=== PATIENT | male | born 1970 | race Caucasian/White ===

== ENCOUNTER 2020-04-18 10:48 | Emergency (ER) | payer MEDICAID, OTHER ==
[2020-04-18] MEDS ORDERED: Sodium Chloride 0.9% 10 ML Syringe FLUSH PRN (11:06)
[2020-04-18] MEDS ORDERED: Sodium Chloride 0.9% 2.5 ML Syringe FLUSH PRN (11:06)
--- NOTE | 2020-04-18 11:11 | EDM.PDOC ---
ED HPI GENERAL MEDICAL PROBLEM - General Chief Complaint: Respiratory Problem Stated Complaint: DIFFICULTY BREATHING Time Seen by Provider: 04/18/20 10:55 Source of Information: Reports: Patient - History of Present Illness INITIAL COMMENTS - FREE TEXT/NARRATIVE: History of present illness: 49-year-old male presenting with difficulty breathing and cough, over the last 24 hours. Patient reports similar symptoms 2 weeks ago, for which he was seen in the clinic here and they did a amaral swab told him to self isolate, however it did come back negative. He did feel better but then started to feel the same way again. Has not had any fevers. He does not smoke but did he did have secondhand smoke exposure as a child and had a remote history of substance use including smoking marijuana and cocaine use. No known history of asthma or emphysema. He does live about 4 hours away from here and makes the drive frequently during the week. Review of systems: As per history of present illness and below otherwise all systems reviewed and negative. Past medical history: As per history of present illness and as reviewed below otherwise noncontributory. Surgical history: As per history of present illness and as reviewed below otherwise noncontributory. Social history: No reported history of drug or alcohol abuse. No tobacco. Remote drug abuse. Family history: As per history of present illness and as reviewed below otherwise noncontributory. Physical exam: GEN: no acute distress, well appearing HEENT: Atraumatic, normocephalic, mucous membranes moist, Neck: supple, nontender, trachea midline. Lungs: No respiratory distress. Mild expiratory wheezing. Heart: Mildly tachycardic Extremities: Atraumatic. Neurovascularly intact. No swelling. Neuro: Awake, alert, oriented. Neuro Exam nonfocal. Skin: warm, dry, no lesions Diagnostics: [] Therapeutics: [] MDM: Impression: [] Plan: [] Definitive disposition and diagnosis as appropriate pending reevaluation and review of above. - Related Data Allergies Allergy/AdvReac Type Severity Reaction Status Date / Time No Known Allergies Allergy Verified 04/18/20 10:57 Home Meds: Home Meds Albuterol Sulfate [Proair Respiclick] 90 mcg IH Q6HR PRN #1 canister 04/18/20 [Rx] Azithromycin [Zithromax] 250 mg PO DAILY #6 tab 04/18/20 [Rx] Past Medical History - Past Health History Medical/Surgical History: Denies Medical/Surgical History Cardiovascular History: Reports: None Respiratory History: Reports: None Gastrointestinal History: Reports: None Genitourinary History: Reports: None Neurological History: Reports: None Psychiatric History: Reports: None Endocrine/Metabolic History: Reports: None Hematologic History: Reports: None Immunologic History: Reports: None Oncologic (Cancer) History: Reports: None Dermatologic History: Reports: None - Infectious Disease History Infectious Disease History: Reports: None - Past Surgical History Other HEENT Surgeries/Procedures: hx sinus surgery Male Surgical History: Reports: None Other Musculoskeletal Surgeries/Procedures:: hx of repair to left proximal tibia, couple of years ago Social & Family History - Tobacco Use Smoking Status *Q: Former Smoker Used Tobacco, but Quit: No - Recreational Drug Use Recreational Drug Use: No ED ROS GENERAL - Review of Systems Review Of Systems: See Below (See HPI) ED EXAM, GENERAL - Physical Exam Exam: See Below (See HPI) EKG INTERPRETATION EKG Interpretation Comments: EKG performed today at 11:24 AM, sinus rhythm, rate 93, right axis deviation, normal early repolarization ST changes. No acute ischemia, no STEMI. Interpreted by me. Course - Vital Signs Text/Narrative:: Patient with dyspnea and cough, mildly tachycardic. No known past medical history. Patient does drive frequently for 4 hours at a time. Therefore we will also check d-dimer though the patient is otherwise low risk for PE/DVT. Labs otherwise unremarkable, however d-dimer elevated. Will check CT angio chest. Chest x-ray negative. CT scan shows groundglass opacity in right middle and infrahilar area consistent with pneumonia, concern for potential COVID given the patient's shortness of breath. Will check swab. Will cover with azithromycin and discharge with albuterol inhaler. COVID negative. Feeling well, no acute distress on multiple reevaluation. Patient stable for outpatient treatment. Last Recorded V/S: Last Vital Signs Temp 96.8 F L 04/18/20 10:53 Pulse 88 04/18/20 15:29 Resp 16 04/18/20 15:29 BP 102/55 L 04/18/20 15:29 Pulse Ox 95 04/18/20 15:29 - Orders/Labs/Meds Orders: Active Orders 24 hr Category Date Time Status EKG Documentation Completion [RC] STAT Care 04/18/20 11:06 Active Saline Lock Insert [OM.PC] Stat Oth 04/18/20 11:06 Ordered Labs: Laboratory Tests 04/18/20 04/18/20 04/18/20 Range/Units 11:18 11:18 11:18 WBC 10.81 (4.0-11.0) K/uL RBC 5.03 (4.50-5.90) M/uL Hgb 15.2 (13.0-17.0) g/dL Hct 45.6 (38.0-50.0) % MCV 90.7 (80.0-98.0) fL MCH 30.2 (27.0-32.0) pg MCHC 33.3 (31.0-37.0) g/dL RDW Std Deviation 43.8 (28.0-62.0) fl RDW Coeff of Natalia 13 (11.0-15.0) % Plt Count 287 (150-400) K/uL MPV 9.30 (7.40-12.00) fL Neut % (Auto) 56.3 (48.0-80.0) % Lymph % (Auto) 21.1 (16.0-40.0) % Hardin % (Auto) 10.3 (0.0-15.0) % Eos % (Auto) 11.7 H (0.0-7.0) % Baso % (Auto) 0.6 (0.0-1.5) % Neut # (Auto) 6.1 H (1.4-5.7) K/uL Lymph # (Auto) 2.3 (0.6-2.4) K/uL Hardin # (Auto) 1.1 H (0.0-0.8) K/uL Eos # (Auto) 1.3 H (0.0-0.7) K/uL Baso # (Auto) 0.1 (0.0-0.1) K/uL Nucleated RBC % 0.0 /100WBC Nucleated RBCs # 0 K/uL D-Dimer, Quantitative 0.62 H (0.0-0.50) mg/L FEU Sodium 138 (136-148) mmol/L Potassium 4.4 (3.5-5.1) mmol/L Chloride 102 (98-107) mmol/L Carbon Dioxide 28.6 (21.0-32.0) mmol/L BUN 15 (7.0-18.0) mg/dL Creatinine 0.9 (0.8-1.3) mg/dL Est Cr Clr Drug Dosing 86.80 mL/min Estimated GFR (MDRD) > 60.0 ml/min Glucose 109 H (74-106) mg/dL Calcium 9.0 (8.5-10.1) mg/dL Total Bilirubin 0.3 (0.2-1.0) mg/dL AST 21 (15-37) IU/L ALT 33 (14-63) IU/L Alkaline Phosphatase 99 (46-116) U/L Troponin I < 0.050 (0.000-0.056) ng/mL B-Natriuretic Peptide (<100) PG/ML Total Protein 7.3 (6.4-8.2) g/dL Albumin 3.8 (3.4-5.0) g/dL Globulin 3.5 (2.6-4.0) g/dL Albumin/Globulin Ratio 1.1 (0.9-1.6) TSH 3rd Generation 4.20 H (0.36-3.74) uIU/mL COVID-19 (LAITH) (NEGATIVE) 04/18/20 04/18/20 Range/Units 11:18 14:40 WBC (4.0-11.0) K/uL RBC (4.50-5.90) M/uL Hgb (13.0-17.0) g/dL Hct (38.0-50.0) % MCV (80.0-98.0) fL MCH (27.0-32.0) pg MCHC (31.0-37.0) g/dL RDW Std Deviation (28.0-62.0) fl RDW Coeff of Natalia (11.0-15.0) % Plt Count (150-400) K/uL MPV (7.40-12.00) fL Neut % (Auto) (48.0-80.0) % Lymph % (Auto) (16.0-40.0) % Hardin % (Auto) (0.0-15.0) % Eos % (Auto) (0.0-7.0) % Baso % (Auto) (0.0-1.5) % Neut # (Auto) (1.4-5.7) K/uL Lymph # (Auto) (0.6-2.4) K/uL Hardin # (Auto) (0.0-0.8) K/uL Eos # (Auto) (0.0-0.7) K/uL Baso # (Auto) (0.0-0.1) K/uL Nucleated RBC % /100WBC Nucleated RBCs # K/uL D-Dimer, Quantitative (0.0-0.50) mg/L FEU Sodium (136-148) mmol/L Potassium (3.5-5.1) mmol/L Chloride (98-107) mmol/L Carbon Dioxide (21.0-32.0) mmol/L BUN (7.0-18.0) mg/dL Creatinine (0.8-1.3) mg/dL Est Cr Clr Drug Dosing mL/min Estimated GFR (MDRD) ml/min Glucose (74-106) mg/dL Calcium (8.5-10.1) mg/dL Total Bilirubin (0.2-1.0) mg/dL AST (15-37) IU/L ALT (14-63) IU/L Alkaline Phosphatase (46-116) U/L Troponin I (0.000-0.056) ng/mL B-Natriuretic Peptide 7 (<100) PG/ML Total Protein (6.4-8.2) g/dL Albumin (3.4-5.0) g/dL Globulin (2.6-4.0) g/dL Albumin/Globulin Ratio (0.9-1.6) TSH 3rd Generation (0.36-3.74) uIU/mL COVID-19 (LAITH) NEGATIVE (NEGATIVE) Meds: Medications Discontinued Medications Generic Name Dose Route Start Last Admin Trade Name Freq PRN Reason Stop Dose Admin Azithromycin 500 mg 04/18/20 14:29 04/18/20 14:38 Zithromax PO 04/18/20 14:30 500 mg ONETIME ONE Administration Iopamidol 50 ml 04/18/20 16:12 04/18/20 16:13 Isovue Multipack-370 (76%) IVPUSH 04/18/20 16:13 50 ml ONETIME STA Administration Prednisone 60 mg 04/18/20 13:00 04/18/20 13:31 Prednisone PO 04/18/20 13:01 60 mg ONETIME ONE Administration Sodium Chloride 10 ml 04/18/20 11:06 04/18/20 13:32 Saline Flush FLUSH 10 ml ASDIRECTED PRN Administration Keep Vein Open Sodium Chloride 2.5 ml 04/18/20 11:06 04/18/20 13:32 Saline Flush FLUSH 2.5 ml ASDIRECTED PRN Administration Keep Vein Open - Re-Assessments/Exams Free Text/Narrative Re-Assessment/Exam: 04/18/20 12:02 Patient's d-dimer level is elevated. Therefore CT Marylu of the chest was ordered. Chest x-ray is negative. This was discussed with the patient. 04/18/20 14:35 Resting comfortably and in no acute distress. Discussed CT scan findings of several areas of groundglass opacities concerning for pneumonia, however possibly also a coronavirus and that we will need to check a coronavirus swab. The patient is in agreement with this. 04/18/20 15:12 COVID swab negative. Plan discussed with patient. Feeling well and would like to go home. Need to avoid work for 1 week minimum and longer if still symptomatic, as well as abx and albuterol prescription discussed with patient. He agrees. Departure - Departure Time of Disposition: 15:21 Disposition: Home, Self-Care 01 Clinical Impression: Pneumonia - Discharge Information Prescriptions: Albuterol Sulfate [Proair Respiclick] 90 mcg IH Q6HR PRN #1 canister PRN Reason: Dyspnea Azithromycin [Zithromax] 250 mg PO DAILY #6 tab Instructions: Shortness of Breath, Adult, [id number], Acute Bronchitis, Adult, [id number], Upper Respiratory Infection, Adult, [id number], Community-Acquired Pneumonia, Adult, [id number] Referrals: PCP,None [Primary Care Provider] - Forms: ED Department Discharge Additional Instructions: Please take the antibiotics as prescribed until all pills are gone. You may also use the albuterol inhaler in case of difficulty breathing. Return to the emergency department if you have any severe difficulty breathing or any worsening or concerning symptoms. You must self isolate for at least 1 week or until symptoms are completely resolved. Work note is attached. Please follow-up with 1 of the primary care physicians listed below for further outpatient ongoing treatment. The following information is given to patients seen in the emergency department who are being discharged to home. This information is to outline your options for follow-up care. We provide all patients seen in our emergency department with a follow-up referral. The need for follow-up, as well as the timing and circumstances, are variable depending upon the specifics of your emergency department visit. If you don't have a primary care physician on staff, we will provide you with a referral. We always advise you to contact your personal physician following an emergency department visit to inform them of the circumstance of the visit and for follow-up with them and/or the need for any referrals to a consulting specialist. The emergency department will also refer you to a specialist when appropriate. This referral assures that you have the opportunity for follow-up care with a specialist. All of these measure are taken in an effort to provide you with optimal care, which includes your follow-up. Under all circumstances we always encourage you to contact your private physician who remains a resource for coordinating your care. When calling for follow-up care, please make the office aware that this follow-up is from your recent emergency room visit. If for any reason you are refused follow-up, please contact the [facility] Emergency Department at and asked to speak to the emergency department charge nurse. [facility] - Primary Care [address] [place], [place] [id number] [place] [address] Sepsis Event Note (ED) - Evaluation Sepsis Screening Result: No Definite Risk - Focused Exam Vital Signs: Vital Signs Temp Pulse Resp BP Pulse Ox 04/18/20 15:29 88 16 102/55 L 95 04/18/20 13:26 89 16 98/56 L 95 04/18/20 10:53 96.8 F L 102 H 22 H 98/66 94 L - My Orders Last 24 Hours: My Active Orders 04/18/20 11:06 EKG Documentation Completion [RC] STAT Saline Lock Insert [OM.PC] Stat - Assessment/Plan Last 24 Hours: My Active Orders 04/18/20 11:06 EKG Documentation Completion [RC] STAT Saline Lock Insert [OM.PC] Stat
--- NOTE | 2020-04-18 11:57 | CR ---
Chest: 2 views of the chest were obtained. Comparison: No prior chest imaging is available. Heart size and mediastinum are normal. Lungs are clear with no acute parenchymal change. Bony structures are unremarkable for the patient's age. Impression: 1. Nothing acute is seen on 2 view chest x-ray. Diagnostic code #1 This report was dictated in MDT
[2020-04-18 12:01] LABS: BLOOD UREA NITROGEN,BUN 15 mg/dL (7.0-18.0); CARBON DIOXIDE,CO2 28.6 mmol/L (21.0-32.0); CHLORIDE,CL 102 mmol/L (98-107); GLUCOSE RANDOM 109 mg/dL (74-106); POTASSIUM,K 4.4 mmol/L (3.5-5.1); SODIUM,NA 138 mmol/L (136-148)
[2020-04-18] MEDS ORDERED: predniSONE 20 MG Tab PO ONE (13:00)
--- NOTE | 2020-04-18 14:26 | CT ---
INDICATION: Chest pain and clinical signs and symptoms of pulmonary embolus. Elevated D-dimer COMPARISON: None TECHNIQUE: : CT examination of the chest was performed with the uneventful intravenous administration of 50 cc of Isovue 370 while thin axial sections were obtained from above the apices of the lungs to the lung bases. Please note that all CT scans at this facility use dose modulation, iterative reconstruction, and/or weight-based dosing when appropriate to reduce radiation dose to as low as reasonably achievable. FINDINGS: : HEART and MEDIASTINUM: The heart size is normal. There is no mediastinal or hilar adenopathy or mass. There is no pericardial effusion. PULMONARY ARTERIAL CIRCULATION: There is no visible intraluminal filling defect to suggest pulmonary embolus. LUNGS: A few patchy ground-glass opacities are identified on the right. User in the right infrahilar area and yet extending into the medial segment of the right lower lobe. These are likely related to pneumonia or other inflammatory process. PLEURAL SPACES: There is no pleural effusion, pneumothorax or pleural based mass. VISUALIZED UPPER ABDOMEN: The limited visualized upper abdominal structures appear normal. OSSEOUS STRUCTURES: Age-appropriate appearance. No acute fracture or destructive process. TUBES and LINES: None. IMPRESSION: 1. There is no finding of pulmonary embolus. 2. A few patchy ground-glass opacities are identified in the right infrahilar area and right middle lobe likely related to pneumonia. No pleural effusion or pneumothorax. Please note that all CT scans at this facility use dose modulation, iterative reconstruction, and/or weight-based dosing when appropriate to reduce radiation dose to as low as reasonably achievable. Dictated by Kenroy Ureña MD @ Apr 18 2020 2:17PM Signed by Dr. Kenroy Ureña @ Apr 18 2020 2:25PM
[2020-04-18] MEDS ORDERED: Azithromycin 250 MG Tab PO ONE (14:29)
[2020-04-18 15:29] VITALS: BP 102/55; PULSE 88
[2020-04-18] MEDS ORDERED: Iopamidol 755 MG/ML 500 ML Multipack Bottle IVPUSH STA (16:12)
== END 2020-04-18 15:39 | disposition home or self-care (01) ==
LOC: MW.ED 10:48
DX: J18.9 Pneumonia, unspecified organism (principal); R00.0 Tachycardia, unspecified; Z87.891 Personal history of nicotine dependence; Z20.828 Contact with and (suspected) exposure to other viral communicable diseases
CPT/HCPCS: 36415; 71046; 71275; 80053; 83880; 84443; 84484; 85025; 85379; 87635; 93005; 99285; A9270; Q9967; 99284; U0002